=== PATIENT | female | born 1990 | race Hispanic/Latino ===

== ENCOUNTER 2018-04-17 13:36 | Outpatient (CLI) | payer OTHER ==
--- NOTE | 2018-04-17 16:02 | ULT ---
ULTRASOUND OB COMPLETE STANDARD: Date: 04/17/18 HISTORY: Anatomy scan. COMPARISON: None. TECHNIQUE: Real-time Wang scale and color evaluation with spectral analysis of the gravid uterus is performed. FINDINGS: Single, viable intrauterine with average ultrasound age of 20 weeks/3 days. Estimated date of delivery is 09/01/18. Estimated weight is 12 oz, 92nd percentile. heart rate is documented at 153 beats/minute. The placenta is anterior and the presentation is breech. No placenta previa. Adequate amniotic fluid. Biparietal diameter: 4.86 cm, 20 weeks/5 days Head circumference: 17.66 cm, 20 weeks/2 days Abdominal circumference: 15.5 cm, 20 weeks/6 days Femur length: 3.08 cm, 19 weeks/4 days Anatomy: Head, cerebellum, cisterna magna, lateral ventricles, four chamber heart, stomach, kidneys, cord inse rtion, bladder, cervical/thoracic/lumbosacral spine, nose/lips, upper/lower extremities, and three ve ssel cord are all normal. IMPRESSION: Single, viable intrauterine , with normal anatomy scan. POS: [facility]
== END 2018-04-17 13:37 | disposition home or self-care (01) ==
LOC: BICULT 13:36
PROVIDERS: ATTEND Family Medicine
DX: Z34.82 Encounter for supervision of other normal pregnancy, second trimester (principal); Z3A.20 20 weeks gestation of pregnancy
CPT/HCPCS: 76805

== ENCOUNTER 2018-08-19 00:15 | Inpatient (IN) | payer MEDICAID, OTHER, SELFPAY ==
[2018-08-19] MEDS ORDERED: Lidocaine 1% (PF) 30 ML VIAL SC PRN (00:59)
[2018-08-19] MEDS ORDERED: NS w/ Oxytocin 10 units 500 ML IV SCH (00:59)
[2018-08-19] MEDS ORDERED: Penicillin G Potassium 5 MILL.UNITS in Sodium Chloride 0.9% 100 ML IVPB SCH (00:59)
[2018-08-19] MEDS ORDERED: Promethazine HCl 25 MG/ML VIAL IM PRN ×2 (00:59→14:04)
[2018-08-19] MEDS ORDERED: Misoprostol 200 MCG TAB PR PRN (00:59)
[2018-08-19] MEDS ORDERED: HYDROcodone/Acetaminophen 5/325 mg Tablet PO PRN ×3 (00:59→21:25)
[2018-08-19] MEDS ORDERED: Docusate 100 MG CAP PO PRN (00:59)
[2018-08-19] MEDS ORDERED: Ondansetron PF 4 MG/2 ML Vial IVP PRN ×3 (00:59→21:25)
[2018-08-19] MEDS ORDERED: Butorphanol Tartrate 1 MG/ML VIAL SLOW IVP PRN (00:59)
[2018-08-19] MEDS ORDERED: Carboprost 250 MCG/ML AMP IM PRN (00:59)
[2018-08-19] MEDS ORDERED: Diphenoxylate HCl/Atropine Tablet PO PRN (00:59)
[2018-08-19] MEDS ORDERED: Methylergonovine 0.2 MG/ML VIAL IM PRN (00:59)
[2018-08-19] MEDS ORDERED: Ibuprofen 800 MG TAB PO PRN (00:59)
[2018-08-19 01:10] VITALS: BMI 35.3
[2018-08-19] MEDS: Lactated Ringer's 1,000 ML IV SCH ×4 (01:30→17:49)
[2018-08-19 02:01] LABS: Hemoglobin 13.2 g/dL (12.0-16.0); Mean Corpuscular HGB CONC 34.7 g/dL (32.0-36.0); Mean Corpuscular Hemoglobin 30.1 pg (27.0-31.0); Mean Corpuscular Volume 86.9 fL (78.0-98.0); Mean Platelet Volume 10.4 fL (7.4-10.4); Platelet Count 190 thou/uL (130-400); RBC Distribution Width 13.2 % (11.5-14.5); White Blood Cell (WBC) Count 10.9 thou/uL (4.8-10.8)
[2018-08-19 02:40] LABS: HBSAg Index 0.33 S/CO (0-0.99); Hep B Surf Ag Non-Reactive S/CO (NonReactive)
[2018-08-19] MEDS: Misoprostol 100 MCG TAB PO SCH ×2 (02:41→07:15)
[2018-08-19] MEDS: Penicillin G 2.5 MILL.units 2.5 MILL.UNITS in Premix Bag 1 BAG IVPB SCH ×5 (03:15→19:11)
[2018-08-19 05:11] LABS: Syphilis Antibody Nonreactive (Nonreactive); Syphilis Antibody Index 0.02 S/CO (<1.00 Non-Reactive)
[2018-08-19] MEDS: NS w/ Oxytocin 10 units 500 ML IV SCH ×2 (10:50→11:00)
[2018-08-19] MEDS ORDERED: Fentanyl 4 mcg/Bup 0.1% Cadd 100 ML ONE (12:41)
[2018-08-19] MEDS ORDERED: diphenhydrAMINE 50 MG/ML VIAL IVP PRN (14:04)
[2018-08-19] MEDS ORDERED: Lactated Ringer's 500 ML IV PRN (14:04)
[2018-08-19] MEDS ORDERED: Acetaminophen 325 MG TAB PO PRN (14:04)
[2018-08-19] MEDS ORDERED: Naloxone HCl 0.4 mg/ml Vial IVP PRN ×2 (14:04)
[2018-08-19] MEDS ORDERED: ePHEDrine/0.9% NaCl/PF SYRINGE 50 mg/10 ml SLOW IVP PRN (14:04)
[2018-08-19] MEDS ORDERED: Eucerin (Mineral Oil/Petrolatum,White) 30 gm Jar TOP PRN (14:04)
[2018-08-19] MEDS ORDERED: Fentanyl 4 mcg/Bupivacaine 0.1% Cassette 100 ML EPIDURAL SCH (14:15)
[2018-08-19] MEDS ORDERED: Communication Order-Pharmacy FS SCH (14:15)
[2018-08-19] MEDS: NS / Oxytocin 40 units/1000ml 1,000 ML IV PRN ×2 (20:42→21:55)
[2018-08-19] MEDS ORDERED: Milk Of Magnesia 30 ML UDCUP PO PRN (21:25)
[2018-08-19] MEDS ORDERED: Benzocaine-Menthol 82.5 ML CAN TOP PRN (21:25)
[2018-08-19] MEDS ORDERED: NS / Oxytocin 40 units/1000ml 1,000 ML IV SCH (21:25)
[2018-08-19] MEDS ORDERED: Bisacodyl 10 MG SUPP PR PRN (21:25)
[2018-08-19] MEDS ORDERED: Lanolin Ointment 7 GM TUBE TOP PRN (21:25)
[2018-08-20] MEDS: Ibuprofen 800 MG TAB PO SCH ×3 (00:18→17:28)
[2018-08-20] MEDS: Docusate Calcium (SURFAK) 240 MG CAP PO SCH ×3 (04:51→21:06)
[2018-08-20] MEDS ORDERED: Bupivacaine/Epinephrine 0.25% 30 ML VIAL ONE (08:00)
[2018-08-20] MEDS: Prenatal Vitamin 1 TAB PO SCH (09:07)
[2018-08-20 09:32] LABS: Hemoglobin 12.8 g/dL (12.0-16.0); Mean Corpuscular HGB CONC 34.3 g/dL (32.0-36.0); Mean Corpuscular Hemoglobin 30.2 pg (27.0-31.0); Mean Corpuscular Volume 88.1 fL (78.0-98.0); Mean Platelet Volume 9.8 fL (7.4-10.4); Platelet Count 183 thou/uL (130-400); RBC Distribution Width 13.2 % (11.5-14.5); Red Blood Cell (RBC) Count 4.22 mill/uL (4.20-5.40); White Blood Cell (WBC) Count 14.7 thou/uL (4.8-10.8)
[2018-08-20] MEDS: Ferrous Sulfate 325 MG TAB PO SCH ×2 (12:55→17:29)
[2018-08-21] MEDS: Ibuprofen 800 MG TAB PO SCH ×2 (00:35→06:30)
[2018-08-21 08:52] VITALS: BP 96/52; TEMP 98.4
[2018-08-21] MEDS: Ferrous Sulfate 325 MG TAB PO SCH (09:26)
[2018-08-21] MEDS: Docusate Calcium (SURFAK) 240 MG CAP PO SCH (09:26)
[2018-08-21] MEDS: Prenatal Vitamin 1 TAB PO SCH (09:26)
== END 2018-08-21 12:20 | disposition home or self-care (01) | DRG 807 ==
LOC: L&D 00:19 → 3SW 23:07
PROVIDERS: ADMIT Family Medicine; ATTEND Family Medicine
PROC: 10E0XZZ Delivery of Products of Conception, External Approach (ICD-10-PCS; principal; 2018-08-18)
PROC: 3E0P7VZ Introduction of Hormone into Female Reproductive, Via Natural or Artificial Opening (ICD-10-PCS; 2018-08-18)
PROC: 10907ZC Drainage of Amniotic Fluid, Therapeutic from Products of Conception, Via Natural or Artificial Opening (ICD-10-PCS; 2018-08-18)
DX: O80 Encounter for full-term uncomplicated delivery (principal); Z37.0 Single live birth; Z3A.39 39 weeks gestation of pregnancy
CPT/HCPCS: 36415; 51702; 85027; 86780; 86850; 86900; 86901; 87340; J2210; J2540; J2590; J3490

== ENCOUNTER 2019-07-02 17:13 | Inpatient (IN) | payer MEDICAID, SELFPAY ==
[2019-07-02] MEDS ORDERED: Acetaminophen 500 MG TAB ONE (17:50)
[2019-07-02] MEDS ORDERED: Ondansetron PF 4 MG/2 ML Vial ONE (17:56)
[2019-07-02 18:01] LABS: Hemoglobin 13.6 g/dL (12.0-16.0); Mean Corpuscular HGB CONC 35.8 g/dL (32.0-36.0); Mean Corpuscular Hemoglobin 30.7 pg (27.0-31.0); Mean Corpuscular Volume 85.6 fL (78.0-98.0); Mean Platelet Volume 9.5 fL (7.4-10.4); Platelet Count 247 thou/uL (130-400); RBC Distribution Width 12.6 % (11.5-14.5); Red Blood Cell (RBC) Count 4.45 mill/uL (4.20-5.40); White Blood Cell (WBC) Count 10.7 thou/uL (4.8-10.8)
[2019-07-02 18:02] LABS: BHCG - Serum POSITIVE (NEGATIVE); Pregs Control Background? CLEAR/WHITE (CLR/WHITE); Pregs Control Bar Appear? YES (CONTROL BAR)
[2019-07-02 18:17] LABS: ALT (SGPT) 29 U/L (8-55); AST (SGOT) 19 U/L (5-34); Albumin 4.1 g/dL (3.5-5.0); Alkaline Phosphatase 87 U/L (40-110); Anion Gap 14 mmol/L (10-20); BUN (Urea Nitrogen) 5 mg/dL (7.0-18.7); Bilirubin, Total 0.7 mg/dL (0.2-1.2); Calc. Creatinine Clearance 0 mL/min (70-130); Calcium 9.7 mg/dL (7.8-10.44); Carbon Dioxide 20 mmol/L (22-29); Chloride 102 mmol/L (98-107); Estimated GFR-MDRD Greater than 90; Globulin 3.2 g/dL (2.4-3.5); Glucose 100 mg/dL (70-105); Potassium 3.8 mmol/L (3.5-5.1); Protein, Total 7.3 g/dL (6.0-8.3); Sodium 132 mmol/L (136-145)
[2019-07-02 18:19] LABS: Band 28 % (5-11); Lymphocytes 3 % (21-51); MDiff Complete? YES; Monocytes 5 % (0-10); Neutrophil 57 % (42-75); Ovalocytes SLIGHT = 2-5 cells (100X) (0-1/hpf); Platelet Morphology Comment Appears Adequate; Polychromasia SLIGHT = 2-3 cells (100X) (0-2/hpf); Reactive Lymphocytes 7 % (0-10); Tear Drops SLIGHT = 2-5 cells (100X) (0-1/hpf)
[2019-07-02 18:51] LABS: Bilirubin Negative (Negative); Blood, Urine Negative (Negative); Clarity Clear (Clear); Glucose, Urine (Dipstick) Normal (Negative); Leukocyte 25 Leu/uL (Negative); Nitrite Negative (Negative); Protein, Urine (Dipstick) 10 mg/dL (Neg-Trace); RBC/HPF 0-3 HPF (0-3); Squamous Epithelial 0-3 HPF (0-3); Urobilinogen Normal mg/dL (Less than 2); WBC/HPF 21-50 HPF (0-3)
[2019-07-02 18:54] LABS: Bacteria/HPF 1+ HPF (None Seen)
[2019-07-02] MEDS ORDERED: Metoclopramide HCl 10 MG/2 ML VIAL ONE (20:02)
[2019-07-02] MEDS ORDERED: cefTRIAXone\\ROCEPHIN 2 GM VIAL ONE (20:38)
--- NOTE | 2019-07-02 21:52 | ULT ---
PELVIC ULTRASOUND: 07/02/19 HISTORY: with abdominal pain. Transabdominal and endovaginal ultrasound performed. FINDINGS: Viable intrauterine . A pole and yolk sac are identified. [place]-rump length indicates 6 week, 3 day gestational age. heart rate was recorded at 103 beats per minute. No evidence of subchorionic hemorrhage. Maternal ovaries are identified and appear unremarkable. Color Doppler with spectral analysis demonst rates blood flow to both ovaries. Left ovarian cyst measures up to 2.5 cm. No free fluid. IMPRESSION: Viable intrauterine gestation. POS: [facility]
[2019-07-02] MEDS ORDERED: Sodium Chloride 0.9% 1,000 ML IV SCH ×2 (23:15)
[2019-07-02] MEDS: Ibuprofen 800 MG TAB PO PRN (23:31)
[2019-07-02] MEDS: Zolpidem Tartrate 5 MG TAB PO PRN (23:34)
--- NOTE | 2019-07-03 01:34 | HP ---
CHIEF COMPLAINT: Fever and back pain. HISTORY OF PRESENT ILLNESS: The patient is a 28-year-old, G3, P2, female, with a newly diagnosed dated in the emergency room today at 6 weeks and 3 days, presenting with persistent nausea and vomiting x3 days. The patient was diagnosed with pyelonephritis downstairs based on urinalysis demonstrating a UTI and physical findings including tachycardia. The patient was given a total of 3 L of IV fluid, 2 g of Rocephin and a 1 g of Tylenol prior to coming to the floor. Upon arrival, the patient's first set of vitals had a temperature of 103.7, blood pressure of 132/82, heart rate of 113, respirations of 22, and 100% saturations on room air. The patient appeared to be in no acute distress, however, appeared ill. She is otherwise alert and oriented, cooperative and pleasant to interact with. The patient reports a history of kidney infections through the course of her life and recurrent urinary tract infections. PAST MEDICAL HISTORY: Recurrent urinary tract infections and kidney infections. PAST SURGICAL HISTORY: Negative. ALLERGIES: NO KNOWN DRUG ALLERGIES. MEDICATIONS: None. SOCIAL HISTORY: Denies drug, alcohol, or tobacco use. She has delivered 2 term babies. REVIEW OF SYSTEMS: The patient reports fever. Denies cough. Denies chest pain or shortness of breath. Reports 3 days of nausea and vomiting, had very little to eat or drink in the last 24 hours. Denies diarrhea or constipation. Denies any new rashes. Denies vaginal bleeding or leakage of fluid PHYSICAL EXAMINATION: HEENT: Head is normocephalic and atraumatic. LUNGS: Clear to auscultation bilaterally. HEART: Has a regular rate and rhythm and is tachycardic. ABDOMEN: Nontender. She has CVA tenderness, more so on the right than the left. LABORATORY DATA: Blood work shows a white count of 10.7, hemoglobin of 13.6, hematocrit 38.1, and platelets of 247,000 with 28 bands. Sodium of 132, potassium of 3.8, creatinine of 0.73. Lactic acid of 2. ALT and AST within normal limits. Urinalysis with 150 ketones and white blood cells of 21 to 50, and 1+ bacteria. ASSESSMENT AND PLAN: The patient is a 28-year-old female with early intrauterine at about 6 weeks' gestation confirmed by ultrasound today with clear evidence of pyelonephritis. The patient is being treated with 2 g of Rocephin q.24 hours. Her urine has been sent for culture and has been hydrated now with 3 L of IV fluids. Her 4th liter will be normal saline at 250 mL an hour and then thereafter be on maintenance. The patient has no evidence of further complications such as respiratory distress or pulmonary edema. However, we will keep an eye for developing complications. The patient had Tylenol and ibuprofen for pain control and fever, Ambien to help her sleep, Zofran for her nausea and vomiting. We will add gentamicin if she shows no evidence of improvement in the next day or two. Job ID: [id number]
[2019-07-03] MEDS: Sodium Chloride 0.9% 1,000 ML IV SCH ×3 (03:08→22:44)
[2019-07-03] MEDS: Ondansetron PF 4 MG/2 ML Vial IVP PRN ×3 (05:55→17:36)
[2019-07-03] MEDS: Acetaminophen 500 MG TAB PO PRN ×3 (05:55→17:29)
--- NOTE | 2019-07-03 08:00 | PRG ---
DATE OF SERVICE: 07/03/2019 PRIMARY OB: None. HISTORY OF PRESENT ILLNESS: The patient is a 28-year-old female with an IUP at approximately 6 weeks and 3 days, presenting to the hospital and diagnosed with pyelonephritis. The patient has been on Rocephin and aggressive IV hydration over the last 12 hours. This morning, she is on maintenance fluid. She reports that ibuprofen and Tylenol have been sufficiently helping with her right flank pain, which seems to be improving significantly. She continues to have fevers subjectively and has had nausea with some vomiting. PHYSICAL EXAMINATION: VITAL SIGNS: Temperature this morning 103.1, pulse of 113, respiratory rate of 18, saturating 99% on room air, and blood pressure 111/63. GENERAL: She appears to be in no acute distress. She does still appear to be ill, but she is alert and oriented, cooperative and pleasant to interact with. HEENT: Head is normocephalic, atraumatic. ASSESSMENT AND PLAN: The patient is a 28-year-old female with an intrauterine at 6 weeks and 3 days, admitted for pyelonephritis. We will continue the current course, which is 2 g of Rocephin q.24 hours and supportive care with Zofran, Ambien p.r.n., Tylenol and ibuprofen. Renal ultrasound performed last night has no final report, however, preliminary report verbally reported no unusual findings. Dr. Card will be the oncoming physician to continue her care today. Anticipate improvement tomorrow. Hopefully, her fever trend begins to significantly improve by then. Job ID: [id number]
--- NOTE | 2019-07-03 08:26 | ULT ---
BILATERAL RENAL ULTRASOUND COMPLETE: HISTORY: Pyelonephritis. Right flank pain, lower back pain, painful urination, and fever. FINDINGS: Right kidney measures 9.4 x 4.2 x 5 cm. The left kidney measures 10.4 x 6.2 x 5.2 cm. No evidence for renal hydronephrosis. No renal calculus. Urinary bladder was unremarkable with a pr evoid volume of 142 cc. There is evidence for an intrauterine . POS: [facility]
[2019-07-03] MEDS: Ibuprofen 800 MG TAB PO PRN ×2 (10:24→19:42)
[2019-07-03] MEDS: Gentamicin Sulfate 80 MG in Premix Bag 1 BAG IVPB SCH ×2 (10:59→18:32)
[2019-07-03 13:04] VITALS: BMI 29.7
--- NOTE | 2019-07-03 16:12 | PDOC.EVN ---
Event Note - Event Note Event Note: Temp to 102+ at 11am, Tn= 99. Renal USG negative. Preliminary UC c/w E. coli, sensitivities pending. Plan: Gentamicin added, cont. Rocephin, and await culture results.
[2019-07-03] MEDS: Promethazine HCl 12.5 MG in Sodium Chloride 0.9% 50 ML IVPB PRN ×2 (19:41→22:44)
[2019-07-03] MEDS ORDERED: FLU VACC QS2019-20(6MOS UP)/PF 60 MCG/0.5 ML SYRINGE IM ONE (21:00)
[2019-07-03] MEDS: cefTRIAXone\\ROCEPHIN 2 GM in Sodium Chloride 0.9% 100 ML IVPB SCH (21:30)
[2019-07-03] MEDS: Zolpidem Tartrate 5 MG TAB PO PRN (22:10)
[2019-07-04] MEDS: Gentamicin Sulfate 80 MG in Premix Bag 1 BAG IVPB SCH (03:24)
[2019-07-04] MEDS: Ibuprofen 800 MG TAB PO PRN ×2 (04:18→13:34)
--- NOTE | 2019-07-04 06:36 | PDOC.EVN ---
Event Note - Event Note Event Note: HD#2 6 4/7 weeks. Continues to c/o back pain. Tmax= 103 at 1900, T= 102 at 0400. UC shows + E coli sensitive to Rocephin, stopped Gentamicin. BC negative so far. Renal USG is negative for obstruction or stones. Plan: Cont. Rocephin IV, Tylenol for fever. Stadol ordered for back pain.
[2019-07-04] MEDS: Ondansetron PF 4 MG/2 ML Vial IVP PRN ×2 (07:50→14:56)
[2019-07-04] MEDS: Sodium Chloride 0.9% 1,000 ML IV SCH ×2 (07:51→18:08)
[2019-07-04] MEDS: Butorphanol Tartrate 1 MG/ML VIAL SLOW IVP PRN ×3 (08:21→14:55)
[2019-07-04] MEDS: Promethazine HCl 12.5 MG in Sodium Chloride 0.9% 50 ML IVPB PRN ×2 (08:24→20:19)
[2019-07-04] MEDS: Acetaminophen 500 MG TAB PO PRN ×2 (14:44→20:28)
[2019-07-04] MEDS: cefTRIAXone\\ROCEPHIN 2 GM in Sodium Chloride 0.9% 100 ML IVPB SCH (21:23)
[2019-07-04] MEDS: Zolpidem Tartrate 5 MG TAB PO PRN (22:43)
[2019-07-05] MEDS: Ondansetron ODT 4 MG TAB PO PRN ×2 (04:31→12:30)
[2019-07-05] MEDS: Sodium Chloride 0.9% 1,000 ML IV SCH (06:18)
--- NOTE | 2019-07-05 06:18 | PDOC.FM ---
- Subjective Subjective: 28 yo G3 hospital day 3 for pyelonephritis, no fever >24 hours. Tolerating PO. Reports nausea and vomiting similar to previous pregnancies, has not previously tried diclegis. IV blew last night, will trial oral medications and plan for dc to home later today if tolerating medications. - Objective MAR Reviewed: Yes Vital Signs & Weight: Vital Signs (12 hours) Temp Pulse Resp BP Pulse Ox 07/05/19 03:12 98.9 F 76 14 119/71 98 07/05/19 00:03 99.0 F 67 14 125/80 97 07/04/19 19:57 98.4 F 72 14 105/72 99 Weight Admit Weight 81.2 kg Weight 81.2 kg I&O: 07/03/19 07/04/19 07/05/19 06:59 06:59 06:59 Intake Total 1895 1401 1444 Output Total 850 Balance 1045 1401 1444 Result Diagrams: 07/02/19 17:42 07/02/19 17:42 Phys Exam - Physical Examination Constitutional: NAD HEENT: PERRLA, sclera anicteric Neck: no nodes Respiratory: no wheezing, no rales, no rhonchi, clear to auscultation bilateral Cardiovascular: RRR, no significant murmur, no rub Gastrointestinal: soft, non-tender, no distention, positive bowel sounds Musculoskeletal: no edema, pulses present No CVA tenderness Neurological: normal sensation Psychiatric: normal affect Skin: normal turgor Dx/Plan (1) Pyelonephritis affecting Code(s): O23.00 - INFECTIONS OF KIDNEY IN , UNSPECIFIED TRIMESTER Status: Acute (2) Nausea/vomiting in Code(s): O21.9 - VOMITING OF , UNSPECIFIED Status: Acute - Plan Plan: 1) pyelo - trial oral omnicef this am and plan for later dc if tolerating PO - medications sent to pharmacy on file 2) NV in - diclegis and zofran sent for relief Dispo: stable, monitor oral intake. If tolerating oral abx dc to home this afternoon. Addendum - Attending - Attending Attestation Date/Time: 07/05/19 3077 I personally discussed the management with Dr. Powers. Patient was not present when I went to see her. I agree with the History, Assessment and Plan documented above with any addition or exceptions noted below. Patient doing well, afebrile x 24 hours. Will hand over to Dr. Weber this morning.
[2019-07-05] MEDS: Ibuprofen 800 MG TAB PO PRN (07:30)
[2019-07-05] MEDS ORDERED: Cefdinir 300 MG CAP PO SCH (09:00)
[2019-07-05 12:05] VITALS: BP 110/75; TEMP 98.4
--- NOTE | 2019-07-05 14:54 | EKG ---
Test Reason : Blood Pressure : / mmHG Vent. Rate : 119 BPM Atrial Rate : 119 BPM P-R Int : 166 ms QRS Dur : 072 ms QT Int : 302 ms P-R-T Axes : 038 041 028 degrees QTc Int : 424 ms Sinus tachycardia Otherwise normal ECG Confirmed by GAY GUTIERREZ ([id number]), editor news CHRISTIAN NOONAN ([id number]) on 07/05/2019 2:54:22 PM Referred By: Confirmed By:GAY Stephens
--- NOTE | 2019-07-07 07:39 | DIS ---
DATE OF ADMISSION: 07/02/2019 DATE OF DISCHARGE: 07/05/2019 The admission history and physical was done by Dr. Nick Beaulieu. I evaluated the patient on 07/05/2019, which is the day of discharge. PRINCIPAL DIAGNOSIS: Suspected pyelonephritis. PRINCIPAL PROCEDURES: 1. Intravenous antibiotics. 2. Pelvic ultrasound. HOSPITAL COURSE: In brief, this patient was admitted on July 02, [address] Beaulieu. Please turn to his H and P at that time. His assessment was that this was a 28-year-old female with an early intrauterine at about 6 weeks' gestation, confirmed by ultrasound with evidence of pyelonephritis. She was given IV Rocephin and the urine culture was sent for culture as was blood culture. Blood culture showed no growth at 48 hours and the urine culture was positive for the E coli sensitive to ceftriaxone. I evaluated the patient on the morning of 07/05/2019, found her temperature to be improved. T-max on the morning of 07/04 at 0732 hours was 100.2, just under the 100.4 fever deepti. Pulse was in the 60s and her respirations were unlabored at 14 to 20 as a range. Blood pressures were 120s to 1 teens over 60s to 80s. The decision was made by the previous on-call team to send the patient home later today after beginning oral antibiotic therapy, which the first dose was scheduled for approximately 9 a.m. on the . I adhered to the plan of discharge per the previous on-call team and ordered discharge at 1 p.m. I evaluated the patient at bedside at 07/05/2019 and reviewed with her diagnosis and plan of care. She will go home on oral antibiotic therapy (cephalosporin oral therapy) with Omnicef 300 mg p.o. b.i.d., and she also will be sent home with Diclegis and Zofran for nausea p.r.n. She was told to follow up at [facility] in 1 week. Job ID: [id number]
== END 2019-07-05 12:51 | disposition home or self-care (01) | DRG 833 ==
LOC: ERS 17:13 → OBSVTOIN 20:47 → 3SE 20:47 → 3SW 07-04 18:53
PROVIDERS: ADMIT Obstetrics & Gynecology; ATTEND Obstetrics & Gynecology
DX: O23.01 Infections of kidney in pregnancy, first trimester (principal); Z23 Encounter for immunization; Z3A.01 Less than 8 weeks gestation of pregnancy; O21.9 Vomiting of pregnancy, unspecified; B96.20 Unspecified Escherichia coli [E. coli] as the cause of diseases classified elsewhere
CPT/HCPCS: 76770; 76856; 80053; 81003; 81015; 83605; 84702; 84703; 85025; 87040; 87077; 87086; 87186; 93005; 96361; 96365; 96366; 96367; 96375; J0595; J0696; J1580; J2405; J2550; J2765; J3490; Q0162

== ENCOUNTER 2019-10-08 10:51 | Outpatient (CLI) | payer OTHER ==
--- NOTE | 2019-10-08 13:10 | ULT ---
OB ULTRASOUND: HISTORY: anatomy. FINDINGS: A single live intrauterine gestation is seen with measurements corresponding to an estimated gestatio nal age of 20 weeks 0 days and ABDIAS at 02/25/2020. The estimated weight measures 327 gm or 12 o unces (14% by Hadlock criteria). BIOMETRY: BPD 4.58 cm, 19 weeks 6 days HC 17.28 cm, 19 weeks 6 days AC 14.74 cm, 20 weeks 1 day FL 3.23 cm, 20 weeks 1 day heart rate measures 149 b.p.m. INOCENCIO measures 10.8 cm. Placenta is posterior and low-lying with out placenta previa. Cervical length measures about 5 cm. A 3-vessel cord, cord insertion, ki dneys, bladder, stomach, 4-chamber heart, lateral ventricles, cerebellum, spine, lips/nose, upper and lower extremities are visualized. No definite anomalies are seen. IMPRESSION: Single live intrauterine of 20 weeks estimated gestational age and estimated date of delive ry at 02/25/2020. POS: [facility]
== END 2019-10-08 10:52 | disposition home or self-care (01) ==
LOC: BICULT 10:51
PROVIDERS: ATTEND Nurse Practitioner
DX: Z34.82 Encounter for supervision of other normal pregnancy, second trimester (principal); Z3A.20 20 weeks gestation of pregnancy
CPT/HCPCS: 76805

== ENCOUNTER 2020-02-17 08:24 | Outpatient (CLI) | payer OTHER ==
[2020-02-18 12:57] LABS: SARS-CoV-2 MS2 Positive; SARS-CoV-2 N Gene Negative; SARS-CoV-2 S Gene Negative; SARS-CoV-2 by NAA Not Detected (NotDetected); SARS-CoV-2 orf1ab Negative
== END 2020-02-17 08:25 | disposition home or self-care (01) ==
LOC: LABBT 08:24
PROVIDERS: ATTEND Family Medicine
DX: Z20.828 Contact with and (suspected) exposure to other viral communicable diseases (principal)
CPT/HCPCS: 87635; U0003

== ENCOUNTER 2020-02-19 05:56 | Inpatient (IN) | payer OTHER, SELFPAY ==
[2020-02-19] MEDS ORDERED: Penicillin G Potassium 5 MILL.UNITS VIAL ONE (07:01)
[2020-02-19] MEDS ORDERED: Ibuprofen 800 MG TAB PO PRN (07:14)
[2020-02-19] MEDS ORDERED: Penicillin G Potassium 5 MILL.UNITS in Sodium Chloride 0.9% 100 ML IVPB SCH (07:14)
[2020-02-19] MEDS ORDERED: Ondansetron PF 4 MG/2 ML Vial IVP PRN ×2 (07:14→18:54)
[2020-02-19] MEDS ORDERED: Promethazine HCl 25 MG/ML VIAL IM PRN ×2 (07:14→18:54)
[2020-02-19] MEDS ORDERED: NS w/ Oxytocin 10 units 500 ML IV SCH ×2 (07:14)
[2020-02-19] MEDS ORDERED: Lidocaine 1% (PF) 30 ML VIAL SC PRN (07:14)
[2020-02-19] MEDS ORDERED: NS / Oxytocin 40 units/1000ml 1,000 ML IV PRN (07:14)
[2020-02-19] MEDS ORDERED: Misoprostol 200 MCG TAB PR PRN (07:14)
[2020-02-19] MEDS ORDERED: Carboprost 250 MCG/ML AMP IM PRN (07:14)
[2020-02-19] MEDS ORDERED: HYDROcodone/Acetaminophen 5/325 mg Tablet PO PRN ×3 (07:14→18:54)
[2020-02-19] MEDS ORDERED: hydrALAZINE 20 MG/ML VIAL SLOW IVP PRN ×2 (07:14→18:54)
[2020-02-19] MEDS ORDERED: Methylergonovine 0.2 MG/ML VIAL IM PRN (07:14)
[2020-02-19] MEDS ORDERED: Diphenoxylate HCl/Atropine Tablet PO PRN (07:14)
[2020-02-19] MEDS ORDERED: Butorphanol Tartrate 1 MG/ML VIAL SLOW IVP PRN (07:14)
[2020-02-19] MEDS: Lactated Ringer's 1,000 ML IV SCH (07:38)
[2020-02-19 07:54] VITALS: BMI 33.0
[2020-02-19 07:55] LABS: Hemoglobin 13.6 g/dL (12.0-16.0); Mean Corpuscular HGB CONC 35.1 g/dL (32.0-36.0); Mean Corpuscular Hemoglobin 31.3 pg (27.0-31.0); Mean Corpuscular Volume 89.1 fL (78.0-98.0); Mean Platelet Volume 10.9 fL (7.4-10.4); Platelet Count 153 thou/uL (130-400); RBC Distribution Width 12.6 % (11.5-14.5); Red Blood Cell (RBC) Count 4.34 mill/uL (4.20-5.40); White Blood Cell (WBC) Count 8.8 thou/uL (4.8-10.8)
[2020-02-19 08:14] LABS: Syphilis Antibody Nonreactive (Nonreactive); Syphilis Antibody Index 0.02 S/CO (<1.00 Non-Reactive)
[2020-02-19 08:15] LABS: HBSAg Index 0.22 S/CO (0-0.99); Hep B Surf Ag Non-Reactive S/CO (NonReactive)
[2020-02-19] MEDS ORDERED: FLU VACC QS2020-21(6MOS UP)/PF 60 MCG/0.5 ML SYRINGE IM ONE (08:30)
[2020-02-19] MEDS ORDERED: Fentanyl 4 mcg/Bup 0.1% Cadd 100 ML ONE (09:14)
[2020-02-19] MEDS: Penicillin G 2.5 MILL.units 2.5 MILL.UNITS in Premix Bag 1 BAG IVPB SCH (11:33)
[2020-02-19] MEDS ORDERED: Bupivacaine 0.25% HCL 30 ML VIAL ONE (12:19)
[2020-02-19] MEDS ORDERED: NS / Oxytocin 40 units/1000ml 1,000 ML IV SCH (18:54)
[2020-02-19] MEDS ORDERED: Adacel (T-DAP) 0.5 ML SYRINGE IM ONE (18:54)
[2020-02-19] MEDS ORDERED: Bisacodyl 10 MG SUPP PR PRN (18:54)
[2020-02-19] MEDS ORDERED: Benzocaine-Menthol 82.5 ML CAN TOP PRN (18:54)
[2020-02-19] MEDS ORDERED: Milk Of Magnesia 30 ML UDCUP PO PRN (18:54)
[2020-02-19] MEDS ORDERED: diphenhydrAMINE 25 MG CAP PO PRN (18:54)
[2020-02-19] MEDS ORDERED: Lanolin Ointment 7 GM TUBE TOP PRN (18:54)
[2020-02-20] MEDS: Ibuprofen 800 MG TAB PO SCH ×3 (05:04→14:36)
[2020-02-20] MEDS: Docusate Calcium (SURFAK) 240 MG CAP PO SCH ×2 (05:06→08:58)
[2020-02-20] MEDS: Ferrous Sulfate 325 MG TAB PO SCH ×2 (08:58→19:19)
[2020-02-20] MEDS ORDERED: Prenatal Vitamin 1 TAB PO SCH (09:00)
[2020-02-20] MEDS: Penicillin G 2.5 MILL.units 2.5 MILL.UNITS in Premix Bag 1 BAG IVPB SCH (15:45)
[2020-02-20] MEDS: Lactated Ringer's 1,000 ML IV SCH (15:45)
[2020-02-20 16:28] VITALS: BP 112/68; TEMP 98.3
== END 2020-02-20 19:05 | disposition home or self-care (01) | DRG 807 ==
LOC: L&D-LIB 05:56 → EDSTATUS 13:05 → 3SW 02-20 10:56
PROVIDERS: ADMIT Family Medicine; ATTEND Family Medicine
PROC: 10E0XZZ Delivery of Products of Conception, External Approach (ICD-10-PCS; principal; 2020-02-19)
PROC: 10907ZC Drainage of Amniotic Fluid, Therapeutic from Products of Conception, Via Natural or Artificial Opening (ICD-10-PCS; 2020-02-19)
PROC: 3E033VJ Introduction of Other Hormone into Peripheral Vein, Percutaneous Approach (ICD-10-PCS; 2020-02-19)
DX: O99.824 Streptococcus B carrier state complicating childbirth (principal); Z37.0 Single live birth; Z3A.39 39 weeks gestation of pregnancy
CPT/HCPCS: 51702; 85027; 86780; 86850; 86900; 86901; 87340; J2540; J2590; S0020

== ENCOUNTER 2020-05-10 13:02 | Emergency (ER) | payer MEDICAID | END 2020-05-10 15:35 | disposition home or self-care (01) | LOC: ERS 13:02 | DX: S82.831A Other fracture of upper and lower end of right fibula, initial encounter for closed fracture (principal); X50.1XXA Overexertion from prolonged static or awkward postures, initial encounter | CPT/HCPCS: 29515 ==

== ENCOUNTER 2021-03-01 13:56 | Outpatient (CLI) | payer OTHER | END 2021-03-01 13:57 | disposition home or self-care (01) | LOC: BICULT 13:56 | PROVIDERS: ATTEND Family Medicine | DX: Z34.82 Encounter for supervision of other normal pregnancy, second trimester (principal); Z3A.19 19 weeks gestation of pregnancy | CPT/HCPCS: 76805 ==